=== PATIENT | male | born 1985 ===

== ENCOUNTER 2020-03-20 05:11 | Emergency (ER) | payer SELFPAY ==
[~2020-03-20] VITALS: Ht 188 cm; Wt 134.9 kg
--- NOTE | 2020-03-20 05:14 | NUR ---
NIL X 1
--- NOTE | 2020-03-20 06:09 | NUR ---
ERP AT BEDSIDE FOR EVAL
--- NOTE | 2020-03-20 06:15 | NUR ---
PT TO CT
--- NOTE | 2020-03-20 06:19 | NUR ---
ASHOK CALLED AT PT REQ WILL SEND UNIT SHORTLY
--- NOTE | 2020-03-20 06:27 | NUR ---
PT BACK FROM CT
[2020-03-20] MEDS ORDERED: DIPH,PERTUSS(ACELL),TET VAC/PF 0.5 ML IM-VACC ONE (06:30)
--- NOTE | 2020-03-20 07:11 | NUR ---
Report recieved from Verito BERNSTEIN
--- NOTE | 2020-03-20 08:02 | NUR ---
MD GODWIN AT BEDSIDE FOR EVALUATION
--- NOTE | 2020-03-20 09:01 | NUR ---
Pt resting in bed, call light in reach.
--- NOTE | 2020-03-20 09:33 | NUR ---
[facility] at bedside
[2020-03-20 09:48] VITALS: BP 131/89
--- NOTE | 2020-03-20 09:49 | NUR ---
DISCHARGE INSTRUCTIONS AND POC REVIEWED
== END 2020-03-20 10:20 | disposition home or self-care (01) ==
LOC: ED 08:56
DX: S02.31XA Fracture of orbital floor, right side, initial encounter for closed fracture (principal); S02.2XXA Fracture of nasal bones, initial encounter for closed fracture; H44.811 Hemophthalmos, right eye; Y04.0XXA Assault by unarmed brawl or fight, initial encounter; Y93.89 Activity, other specified; Y92.89 Other specified places as the place of occurrence of the external cause; Y99.8 Other external cause status
CPT/HCPCS: 70450; 70486; 99285